=== PATIENT | male | born 1985 | race Caucasian/White ===

== ENCOUNTER 2020-12-31 11:40 | Emergency (ER) | payer OTHER ==
[~2020-12-31] VITALS: Ht 170.2 cm; Wt 125.0 kg
[2020-12-31] MEDS ORDERED: IBUPROFEN 600 MG TABLET PO ONE (12:15)
[2020-12-31 12:37] VITALS: BP 157/94
== END 2020-12-31 14:09 | disposition home or self-care (01) ==
LOC: EMS 11:42
DX: M79.671 Pain in right foot (principal); M79.672 Pain in left foot
CPT/HCPCS: 99283